=== PATIENT | male | born 1960 | race Caucasian/White ===

== ENCOUNTER → 2016-10-07 | Outpatient (CLI) | payer SELFPAY ==
[~2016-10-07] MED LIST: ANAPROX DS550 MG PO; ATIVAN1 MG PO; BREO ELLIPTA 11 EACH IH; DIGITEK0.25 MG PO; FLEXERIL10 MG PO; HYDR25T PO; HYDROCODONE BIT1 T11 PO; KLOR-CON M2020 ME1 PO; LASIX20 MG PO; LEVAQUIN750 M1 PO; LISINOPRIL AND1 TA2 PO; LISINOPRIL HCTZ1 TA1 PO; MOTRIN800 MG PO; MULTIVITAMIN1 TA1 PO; NAPROSYN500 MG PO; NATURE'S BLEND F1 MG PO; PANTOPRAZOLE40 MG PO; PREDNISONE10 MG PO; PROAIR HFA8.5 GM INH; PROTONIX40 MG PO; RESTORIL30 MG PO; ROBITUSSIN AC 110 ML PO; TRAMADOL HCL50 MG PO; VITAMIN B-11 TAB PO
== END | disposition home or self-care (01) ==
LOC: RAD 10:07
DX: I11.0 Hypertensive heart disease with heart failure (principal); I50.30 Unspecified diastolic (congestive) heart failure; J44.9 Chronic obstructive pulmonary disease, unspecified; R05 Cough; R09.89 Other specified symptoms and signs involving the circulatory and respiratory systems

== ENCOUNTER 2016-12-20 18:06 | Emergency (ER) | payer SELFPAY ==
[~2016-12-20] VITALS: Ht 165.1 cm; Wt 129.3 kg
[2016-12-20] MEDS ORDERED: NASONEX0.05 MG/AC NAS (18:32)
[2016-12-20] MEDS ORDERED: AUGMENTIN 875-875 MG PO (18:32)
== END 2016-12-20 18:49 | disposition home or self-care (01) ==
LOC: ED 18:06
DX: J01.00 Acute maxillary sinusitis, unspecified (principal); I11.0 Hypertensive heart disease with heart failure; I50.9 Heart failure, unspecified; K21.9 Gastro-esophageal reflux disease without esophagitis; J44.9 Chronic obstructive pulmonary disease, unspecified; Z87.891 Personal history of nicotine dependence

== ENCOUNTER 2017-11-27 03:33 | Inpatient (IN) | payer OTHER ==
[~2017-11-27] VITALS: Ht 170.2 cm; Wt 98.9 kg
[2017-11-27] VITALS (16 sets, daily range): BP systolic 58–121; BP diastolic 24–91
[~2017-11-27 03:33] MED LIST changes: +AUGMENTIN 875-875 MG PO; +NASONEX0.05 MG/AC NAS
[2017-11-27 04:13] LABS: HEMATOCRIT 19.8 % (42.0-52.0); HEMOGLOBIN 6.4 g/dl (14.0-18.0); MEAN CORPUSCULAR HGB CONC 32.3 g/dl (33.0-37.0); MEAN PLATELET VOLUME 11.3 fl (9.6-12.3); PLATELET COUNT AUTOMATED 184 10*3/uL (130-400); RED CELL DISTRI WIDTH 17.5 % (0-14.5); WHITE BLOOD COUNT 23.8 10*3/uL (4.8-10.8)
[2017-11-27 04:27] LABS: INTERNATIONAL NORM RATIO 2.3 (2.0-3.5)
[2017-11-27 04:31] LABS: ALBUMIN 2.5 gm/dl (3.1-4.5); CREATININE 3.88 mg/dL (0.70-1.30); TOTAL PROTEIN 7.1 gm/dL (6.4-8.2)
[2017-11-27 04:36] LABS: PLATELET SUFFICIENCY NORMAL (NORMAL); TOTAL CELLS COUNTED 100 #CELLS
[2017-11-27 04:37] LABS: BURR CELLS MANY; SCHISTOCYTES FEW
[2017-11-27 04:38] LABS: POLYCHROMASIA SLIGHT
[2017-11-27 04:39] LABS: POTASSIUM 6.5 mmol/L (3.5-5.1); TROPONIN I 0.07 ng/ml (<0.045)
[2017-11-27 06:53] LABS: PHOSPHOROUS 3.6 mg/dL (2.5-4.9)
[2017-11-27 07:01] LABS: FREE T4 1.56 ng/dl (0.76-1.46); THYROID STIM HORMONE (HS) 2.83 uIU/ml (0.358-4.75)
[2017-11-27 07:41] LABS: VITAMIN D, 25-HYDROXY 14.8 ng/mL (30-100)
[2017-11-27] MEDS ORDERED: LACTULOSE10 GM/153 PO (07:42)
[2017-11-27] MEDS ORDERED: ZOFRAN4 MG PO (07:43)
[2017-11-27] MEDS ORDERED: FLINTSTONES WIT18 MG PO (07:45)
[2017-11-27] MEDS ORDERED: ALDACTONE50 M1 PO (07:46)
[2017-11-27] MEDS ORDERED: CELEXA10 MG PO (07:50)
[2017-11-27] MEDS ORDERED: XIFAXAN200 M1 PO (07:52)
[2017-11-27 09:52] LABS: ACANTHOCYTES MANY
[2017-11-27 09:54] LABS: BILIRUBIN 1+ (NEGATIVE); BLOOD NEGATIVE (NEGATIVE); CLARITY CLOUDY (CLEAR); COLOR YELLOW (YELLOW); GLUCOSE NEGATIVE (NEGATIVE); KETONE TRACE (NEGATIVE); LEUKO ESTERASE NEGATIVE (NEGATIVE); NITRITE NEGATIVE (NEGATIVE); SPECIFIC GRAVITY 1.025 (1.005-1.030)
[2017-11-27 10:25] LABS: HYALINE CAST 20-30
[2017-11-27 10:35] LABS: ALBUMIN 2.3 gm/dl (3.1-4.5); CREATININE 3.97 mg/dL (0.70-1.30); TOTAL PROTEIN 6.5 gm/dL (6.4-8.2)
[2017-11-27 10:41] LABS: POTASSIUM 6.1 mmol/L (3.5-5.1)
[2017-11-27 10:46] LABS: ABG HCO3 17.3 mmol/l (22-26); ABG O2 SATURATION 83.7 % (95-97); ARTERIAL BLOOD GAS PCO2 37.7 mmHg (35-45); ARTERIAL BLOOD GAS PH 7.282 (7.35-7.45); ARTERIAL BLOOD GAS PO2 48.5 mmHg (80-90)
[2017-11-27 10:47] LABS: ABG BASE EXCESS -8.2 mmol/L (-2.0-2.0)
[2017-11-27] MEDS ORDERED: ONDANSETRON4 MG/2 M3 IV (11:04)
== END 2017-11-27 12:15 | disposition short-term general hospital (02) | DRG 189 ==
LOC: ED 03:33 → EDHOLD 05:40 → ICCU 06:42
PROVIDERS: Emergency Medicine; Internal Medicine; Internal Medicine Nephrology
PROC: 30233N1 Transfusion of Nonautologous Red Blood Cells into Peripheral Vein, Percutaneous Approach (ICD-10-PCS; principal; 2017-11-27)
DX: J96.01 Acute respiratory failure with hypoxia (principal); R57.1 Hypovolemic shock; N17.0 Acute kidney failure with tubular necrosis; E43 Unspecified severe protein-calorie malnutrition; G93.41 Metabolic encephalopathy; I11.0 Hypertensive heart disease with heart failure; I95.9 Hypotension, unspecified; K92.2 Gastrointestinal hemorrhage, unspecified; D68.9 Coagulation defect, unspecified; I50.9 Heart failure, unspecified; D62 Acute posthemorrhagic anemia; E87.1 Hypo-osmolality and hyponatremia; E66.01 Morbid (severe) obesity due to excess calories; E87.5 Hyperkalemia; K74.60 Unspecified cirrhosis of liver; F41.9 Anxiety disorder, unspecified; J44.9 Chronic obstructive pulmonary disease, unspecified; K21.9 Gastro-esophageal reflux disease without esophagitis; R74.8 Abnormal levels of other serum enzymes; W18.2XXA Fall in (into) shower or empty bathtub, initial encounter; Z66 Do not resuscitate; Z51.5 Encounter for palliative care; I48.0 Paroxysmal atrial fibrillation; Z87.891 Personal history of nicotine dependence; Z82.49 Family history of ischemic heart disease and other diseases of the circulatory system; Z80.0 Family history of malignant neoplasm of digestive organs; Z88.7 Allergy status to serum and vaccine; Z88.8 Allergy status to other drugs, medicaments and biological substances; Y93.E1 Activity, personal bathing and showering; Y92.091 Bathroom in other non-institutional residence as the place of occurrence of the external cause; Y99.8 Other external cause status; Z87.898 Personal history of other specified conditions; Z68.34 Body mass index [BMI] 34.0-34.9, adult